=== PATIENT | female | born 1970 | race Two or more races ===

== ENCOUNTER → 2018-11-03 | Day surgery (SDC) | payer OTHER | END | disposition home or self-care (01) | LOC: ADM 11-01 15:30 → CIR.AMB 07:15 | DX: K60.1 Chronic anal fissure (principal); K62.4 Stenosis of anus and rectum ==

== ENCOUNTER 2019-04-29 07:12 | Day surgery (SDC) | payer OTHER | END 2019-04-29 14:50 | disposition home or self-care (01) | LOC: AMB-ENDOS 07:12 | DX: K64.1 Second degree hemorrhoids (principal) ==